=== PATIENT | female | born 2000 | race Caucasian/White ===

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

== ENCOUNTER 2019-01-18 14:52 | Emergency (ER) | payer MEDICAID ==
[~2019-01-18] VITALS: Ht 157.5 cm; Wt 65.9 kg
[2019-01-18 15:04] VITALS: BP 143/76; Ht 157.5 cm; Wt 65.9 kg
[2019-01-18] MEDS ORDERED: MICONAZOLE NITR28 GM TOPICAL (16:05)
[2019-01-18] MEDS ORDERED: VISTARIL50 MG PO (16:05)
== END 2019-01-18 16:41 | disposition home or self-care (01) ==
LOC: D.ER 14:52
DX: B35.4 Tinea corporis (principal); F17.210 Nicotine dependence, cigarettes, uncomplicated

== ENCOUNTER 2019-05-22 12:55 | Emergency (ER) | payer MEDICAID ==
[~2019-05-22] VITALS: Ht 157.5 cm; Wt 66.8 kg
[~2019-05-22 12:55] MED LIST: MICONAZOLE NITR28 GM TOPICAL; VISTARIL50 MG PO
[2019-05-22 13:02] VITALS: Ht 157.5 cm; Wt 66.8 kg
[2019-05-22 13:47] LABS: BASOPHILS 0.1 % (0-2); EOSINOPHILS 4.6 % (0-7); HEMATOCRIT 45.5 % (36.0-48.0); HEMOGLOBIN 15.3 g/dL (12-16); IMMATURE GRANULOCYTES 0.3 % (0-5); LYMPHOCYTES 21.8 % (15-50); MCH 30.2 pg (26.0-34.0); MCHC 33.6 g/dL (31.0-37.0); MCV 89.7 fL (80.0-100.0); MEAN PLATELET VOLUME 10.4 fL (7.4-10.4); NEUTROPHILS 65.2 % (40-80); PLATELET COUNT 227 10x3/uL (130-400); RBC 5.07 10x6/uL (4.00-5.40); RDW 13.3 % (11.5-14.5); WBC 6.9 10x3/uL (4.8-10.8)
[2019-05-22 13:58] LABS: APPEARANCE CLEAR (CLEAR); BACTERIA MODERATE /hpf (NEGATIVE); BILIRUBIN NEGATIVE (NEGATIVE); COLOR YELLOW (YELLOW); EPITHELIAL CELLS 0-5 /hpf (0-5); GLUCOSE NEGATIVE (NEGATIVE); KETONE NEGATIVE (NEGATIVE); MUCUS <1+ /lpf (NONE SEEN); NITRITE NEGATIVE (NEGATIVE); PROTEIN NEGATIVE (NEGATIVE); RED CELLS - URINE OCC /hpf (0-5); SPECIFIC GRAVITY 1.005 (1.005-1.020); UROBILINOGEN NORMAL (NORMAL); WHITE CELLS - URINE 0-5 /hpf (NEGATIVE)
[2019-05-22 13:59] LABS: CALC OSMOLALITY 276 mosm/kg (275-300); CALCIUM 8.5 mg/dL (8.5-10.1); CARBON DIOXIDE 29.9 mmol/L (21.0-32.0); CHLORIDE - SERUM 105 mmol/L (98-107); CREATININE - SERUM 0.9 mg/dL (0.6-1.3); GLUCOSE 94 mg/dL (74-106); SODIUM 140 mmol/L (136-145); UREA NITROGEN 8 mg/dL (7-18); eGFR NON AFRICAN AMERICAN 85 mL/min (90-120)
[2019-05-22 13:59] LABS: HCG URINE NEGATIVE (NEGATIVE)
[2019-05-22] MEDS ORDERED: CYCLOBENZAPRINE10 MG PO (14:01)
[2019-05-22 14:05] LABS: ALBUMIN 3.6 g/dL (3.4-5.0); ALKALINE PHOSPHATASE 52 U/L (46-116); ALT (SGPT) 34 U/L (10-68); BILIRUBIN - TOTAL 0.65 mg/dL (0.2-1.3); LIPASE 111 U/L (73-393); PROTEIN - SERUM 6.9 g/dL (6.4-8.2)
[2019-05-22 14:32] VITALS: BP 132/74
== END 2019-05-22 14:33 | disposition home or self-care (01) ==
LOC: D.ER 12:55
PROVIDERS: Family Medicine
DX: M54.6 Pain in thoracic spine (principal)

== ENCOUNTER 2019-07-08 08:19 | Emergency (ER) | payer MEDICAID ==
[~2019-07-08] VITALS: Ht 157.5 cm; Wt 63.6 kg
[~2019-07-08 08:19] MED LIST changes: +CYCLOBENZAPRINE10 MG PO
[2019-07-08 08:23] VITALS: Ht 157.5 cm; Wt 63.6 kg
[2019-07-08] MEDS ORDERED: ACETAMINOPHEN500 M1 PO (08:47)
[2019-07-08] MEDS ORDERED: IBUPROFEN800 MG PO (08:47)
[2019-07-08] MEDS ORDERED: CYCLOBENZAPRINE10 MG PO (08:47)
[2019-07-08 09:33] VITALS: BP 111/65
== END 2019-07-08 09:31 | disposition home or self-care (01) ==
LOC: D.ER 08:19
DX: M79.18 Myalgia, other site (principal); M79.642 Pain in left hand; M79.641 Pain in right hand; M25.532 Pain in left wrist; M25.531 Pain in right wrist; M70.80 Other soft tissue disorders related to use, overuse and pressure of unspecified site; Y93.9 Activity, unspecified